=== PATIENT | male | born 1995 ===

== ENCOUNTER 2025-07-31 16:53 | Emergency (ER) | payer SELFPAY ==
[~2025-07-31] VITALS: Ht 180.3 cm; Wt 125.5 kg
[2025-07-31 17:03] VITALS: BP 158/82; PULSE 68; RESP 16; TEMP 98.3; O2SAT 99
[2025-07-31] MEDS ORDERED: CEPH-585 PO (17:36)
--- NOTE | 2025-07-31 17:40 | Physician Documentation ---
History of Present Illness ~ Chief Complaint: Rash Stated Complaint: RASH Time Seen by MD: 17:29 HPI patient is a 30-year-old male that presents to the emergency department for evaluation of rash to the bilateral medial aspects of his thighs. Rash appears dry and flat almost consistent with eczema or heat rash. Rash is extending mildly up onto the patient's abdomen and spots although not obvious. The rash has not appear to be associated with yeast infection at this time rash does not appear to be infectious. Mom is concerned because he started 2 new medications. Do not believe that they are associated with the medications currently. Fever chills nausea vomiting diarrhea noted at this time patient is not appear toxic patient does not appear to be in distress. Medication Reconciliation Allergies: Coded Allergies: No Known Allergies (Unverified , 07/31/25) Review of Systems ROS As stated above in the HPI, otherwise all systems are reviewed and negative. Physical Exam Vital Signs: Temperature: 98.3, Heart Rate: 68, Respiratory Rate: 16, BP: 158/82, Pulse Oximetry: 99, Weight: 125.450 Oxygen Flow Rate: 0 Physical Exam VITALS: Reviewed and as above. GENERAL: Alert, no apparent distress. SKIN: Warm and dry, rash noted to the medial aspect of bilateral thighs. Rash appears flat dry possibly consistent with viral exanthem mom versus heat rash versus eczema. NEURO: Oriented x4, No motor or sensory deficit PSYCH: Normal mood and affect, no agitation Progress Results/Orders Results/Orders Vital Signs 07/31/25 17:03 Temp 98.3 Pulse 68 Resp 16 B/P (MAP) 158/82 Pulse Ox 99 O2 Flow Rate 0 Medical Decision Making Additional information obtaine: other Findings Chief Complaint: Dry, flat rash on bilateral medial thighs with mild extension to abdomen. History of Present Illness: 30-year-old male presented to the emergency department with a dry, flat rash on the bilateral medial aspects of his thighs, mildly extending onto the abdomen. Patient's mother expressed concern regarding recent initiation of two new medications. Patient denies fever, systemic symptoms, pruritus, pain, or recent tick exposure. No recent travel or outdoor activities reported. Rash is non-blanching, non-petechial, and without vesicles or bullae. Physical Examination: Dry, flat, erythematous rash localized to bilateral medial thighs with mild extension to lower abdomen. No evidence of vesicles, bullae, petechiae, purpura, or eschars. No lymphadenopathy. Afebrile. Vital signs stable. Differential Diagnosis: The differential diagnosis for rash is broad and includes infectious, inflammatory, and hypersensitivity etiologies. Given the clinical presentation, the following were considered: Eczematous dermatitis/heat rash (most likely): Localized distribution, dry flat appearance, absence of systemic symptoms, and lack of infectious features support this diagnosis. Drug eruption: While patient recently started two new medications raising maternal concern, the rash morphology, distribution, and timing are not consistent with typical exanthematous drug reactions, which generally present as maculopapular eruptions with more widespread distribution. Infectious etiologies (less likely): The absence of fever, systemic symptoms, and characteristic features makes infectious causes unlikely. Specifically: Yeast infection ruled out by clinical appearance Bacterial cellulitis unlikely given absence of warmth, edema, clear demarcation, and systemic features Tickborne rickettsial diseases unlikely given absence of fever, petechiae, and tick exposure history Viral exanthems unlikely given absence of fever and maculopapular morphology Contact dermatitis: Possible given localized distribution, though patient denies known exposures. Assessment and Clinical Reasoning: This presentation is most consistent with eczematous dermatitis or heat rash based on the dry, flat morphology, localized distribution to intertriginous areas, and absence of infectious or systemic features. The rash is not believed to be medication-related given atypical morphology and distribution for drug eruption. The absence of fever, systemic symptoms, and concerning dermatologic features (petechiae, purpura, vesicles, eschars) makes serious infectious or systemic etiologies unlikely. Plan: Trial of topical hydrocortisone to one area of the rash as initial conservative management for presumed inflammatory dermatitis Clinical reassessment in 2 days: If no improvement with topical corticosteroid, will prescribe cephalexin (Keflex) to empirically cover for possible bacterial superinfection or early cellulitis Follow-up with primary care provider for ongoing management and reassessment Return precautions: Instructed to return immediately if develops fever, spreading erythema, warmth, swelling, systemic symptoms, or worsening rash despite treatment Disposition: Discharged home in stable condition with close outpatient follow-up arranged. Differential Dx:Considerations: Include: Abscess, AIDS/HIV, Anthrax (cutaneous), Atopic dermatitis, Candidiasis, Contact dermatitis, Drug reaction, Erythema multiforme, Erysipelas, Gangrene, Herpes zoster, Herpes simplex, Hi dradenitis suppurativa, Impetigo, Intertrigo, Lymes disease, Molluscum contagiosum, Osteomyelitis, Pediculosis, Pityriasis rosea, Psoriaisis, RMSF, Rosacea, Scabies, Scarlet fever, Tinea, Urticaria, Varicella, Viral exanthema, Other Departure Disposition: HOME / SELF CARE / HOMELESS Impression: Primary Impression: Urticaria Additional Impression: Skin irritation Condition: Stable Discharge Instructions: Contact Dermatitis, Pruritus Additional Instructions: Your Diagnosis You were seen in the emergency department today for a dry, flat rash on the inner parts of both thighs that has spread slightly to your lower abdomen. After examination, this rash appears to be consistent with eczema (atopic dermatitis) or heat rash. The rash does not appear to be caused by a yeast infection or bacterial infection at this time, and is not believed to be related to your two new medications. Your Treatment Plan Step 1: Try Hydrocortisone Cream (Starting Today) Apply a thin layer of [id number] hydrocortisone cream to one area of the rash 2-3 times daily Continue this treatment for 2 days to see if the rash improves Apply the cream to clean, dry skin Do not cover the treated area with tight clothing or bandages unless instructed General Skin Care: Keep the affected areas clean and dry Avoid hot showers or baths, which can worsen the rash Wear loose-fitting, breathable clothing Apply a gentle moisturizer to the affected areas after bathing Step 2: If No Improvement After 2 Days If the rash has not improved after 2 days of using hydrocortisone cream: A prescription for Keflex (cephalexin) antibiotic has been called in to your pharmacy You may pepper picker this medication and start taking it as directed on the label This medication will help if there is a bacterial component to the rash that was not initially obvious When to Seek Immediate Medical Attention Return to the emergency department or call 911 if you develop any of the following: Fever (temperature above 100.4F or 38C) Rash that spreads rapidly or becomes painful Rash that develops blisters, pus, or drainage Increasing redness, warmth, or swelling of the affected areas Red streaks extending from the rash Feeling generally unwell, weak, or dizzy Difficulty breathing or swallowing Follow-Up Care Schedule an appointment with your primary care provider within the next week to reassess the rash and discuss your treatment response Bring a list of all your current medications to that appointment Take photos of the rash over the next few days to show your doctor how it has changed Important Reminders If the hydrocortisone cream causes increased irritation, burning, or worsening of the rash, stop using it and contact your primary care provider Complete the full course of antibiotics if you need to start them, even if the rash improves before you finish the medication Avoid scratching the affected areas, as this can lead to skin damage and infection Questions? If you have any questions or concerns about your treatment plan, please contact your primary care provider's office. Referrals: NO PRIMARY CARE PROVIDER (PCP) Prescriptions Cephalexin*Monohydrate* (Keflex*) 500 Mg Capsule 1 CAP PO QID for 7 Days, #28 CAP Prov: YOHANA FOSTER 07/31/25 Education Educated: Patient Educated regarding: diagnosis, treatment, need for follow up Signature Scribe Signature: A Attestation: Scribed for Yohana Foster by LIDIA Padilla . 07/31/25 17:40 YOHANA FOSTER Jul 31, 2025 17:40
== END 2025-07-31 17:48 | disposition home or self-care (01) ==
LOC: ER 16:54
DX: L50.9 Urticaria, unspecified (principal); L98.8 Other specified disorders of the skin and subcutaneous tissue
CPT/HCPCS: 99283